=== PATIENT | male | born 1965 ===

== ENCOUNTER → 2021-11-24 | Outpatient (CLI) | payer OTHER ==
--- NOTE | 2021-11-24 15:22 | CONS ---
CONSULTATION DATE OF SERVICE: 11/24/2021 This 56-year-old gentleman has [facility] for obstructive sleep apnea-hypopnea syndrome. HISTORY OF PRESENT ILLNESS/SLEEP-WAKE EVALUATION: Patient's usual sleep schedule is from 10 p.m. to 6 a.m. No problems with falling asleep. No TV in bedroom. The patient sleeps with CPAP and he is using CPAP equipment every night. According to him, he has practically no snoring with the machine. He has had a history of obstructive sleep apnea for about 10 years. He is using the same machine. I checked his CPAP unit. Pressure is 6 cm of water. Usage is 30/30 nights for more than 4 hours. leak 0%. Apnea-hypopnea index 2.4, which is normal. The patient is using a Mirage FX nasal mask. No history of hypnagogic hallucinations, sleep paralysis or cataplexy. [place] Sleepiness Scale is 8. He may take one nap at noon time. Even while using his machine there is no clear snoring, but patient still may wake up from sleep up to 6 times with one episode of nocturia. PAST MEDICAL HISTORY: Positive for hypertension, allergies, rhinitis. PAST SURGICAL HISTORY: None. MEDICATIONS: 1. Lisinopril/hydrochlorothiazide 20/12.5 mg two tablets once a day. 2. Nellie 180 mg once a day. 3. Flonase 2 spray once a day. 4. Vitamin D3 supplement. FAMILY HISTORY: Hypertension, arthritis, sleep apnea, diabetes, thyroid problems. REVIEW OF SYSTEMS: Awakenings from sleep. No fevers. No double vision. No recent chest pain. No shortness of breath. No abdominal pain. No bleeding episodes. No blood in the urine. No seizure episodes. PHYSICAL EXAMINATION: GENERAL: Pleasant patient in no distress. VITAL SIGNS: BP 143/73, HR 69, RR 16, height 6 feet 2 inches, weight 281.6 pounds, body mass index 36.0, temperature 97.2, oxygen saturation at room air 96%. HEENT: PERRLA, EOMI, evaluation of oropharynx showed tongue protrudes midline. Extremely low position of soft palate; Mallampati IV. NECK: Supple, no JVD. Thyroid is not palpable. Neck is wide; 17-1/2 inches in circumference. LUNGS: Clear to percussion and to auscultation. Good air exchange. No wheezing or rhonchi. HEART: S1, S2 regular. No murmurs, gallops, or rubs. ABDOMEN: Soft and nontender. Bowel sounds are present. No organomegaly appreciated. EXTREMITIES: No clubbing or cyanosis. 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 Cranial nerves 2 to 7 intact. There is no fasciculation or atrophy. noted. No focal deficits observed. IMPRESSION: 1. Obstructive sleep apnea-hypopnea syndrome for 10 years. Patient continues to use his CPAP equipment every night. Reading from the machine indicates great compliance with treatment. Normal respiration according to reading from CPAP unit. CPAP unit is old. Knob is broken. Needs to be replaced. 2. Obesity. 3. Hypertension. 4. Allergies. 5. Rhinitis. PLAN: 1. Obtain results of previous sleep studies. 2. Prescription for replacement of CPAP unit and all necessary CPAP supplies, including nasal Mirage FX nasal mask, tube, filters. 3. Watching and losing weight. 4. Sleep hygiene with regular time in bed for at least 8 hours. 5. No driving if feeling any sleepiness. 6. Follow-up visit in 30 to 90 days after the patient gets his new CPAP unit to check his compliance and again to re-evaluate breathing with the new equipment. Thank you very much for referring this patient for consultation. Sincerely, Tin Goodwin MD, PhD, FAASM Diplomat of [place] [employer] Sleep Medicine [employer] [place] [employer] [facility] [place] MMODL / IJN: [id number] /
== END ==
LOC: SLEEP 13:38
PROVIDERS: ATTEND Internal Medicine
DX: G47.33 Obstructive sleep apnea (adult) (pediatric) (principal); E66.9 Obesity, unspecified; I10 Essential (primary) hypertension; J31.0 Chronic rhinitis; T78.40XA Allergy, unspecified, initial encounter; Z99.89 Dependence on other enabling machines and devices; Z68.36 Body mass index [BMI] 36.0-36.9, adult
CPT/HCPCS: 99211